=== PATIENT | male | born 1965 | race Caucasian/White ===

== ENCOUNTER → 2017-12-04 | Emergency (ER) | payer BC ==
[~2017-12-04] VITALS: Ht 180.3 cm; Wt 95.3 kg
[~2017-12-04] MED LIST: BACITRACIN 1 GM OINT TP ONE; DIPH-TET-PERTUS Vaccine 0.5 ML VIAL (ADACEL) I.M. ONE; HYDROcodone/ACETAMIN 7.5-325 MG TAB PO ONE; LIDOCAINE 2%, 20 ML MDV INJ ONE; LIDOCAINE 4% TOPICAL 50 ML BOTTLE MM ONE; LIDOCAINE/EPI 1% 1:100000 20 ML VIAL INJ ONE; LORazepam 2 MG/ML VIAL (FOR ER USE) IM ONE
[2017-12-04 15:08] VITALS: BP_SYST 129
[2017-12-04 17:42] VITALS: BP_SYST 122
== END | disposition home or self-care (01) ==
LOC: SED 14:27
DX: S01.511A Laceration without foreign body of lip, initial encounter (principal); I10 Essential (primary) hypertension; E10.9 Type 1 diabetes mellitus without complications; E78.5 Hyperlipidemia, unspecified; Z90.89 Acquired absence of other organs; Z88.0 Allergy status to penicillin; W22.8XXA Striking against or struck by other objects, initial encounter; Y93.89 Activity, other specified; Y92.89 Other specified places as the place of occurrence of the external cause; Y99.8 Other external cause status
CPT/HCPCS: 90715; 99284; 96372; 90471; 12011; J2060